=== PATIENT | female | born 1940 | race Caucasian/White ===

== ENCOUNTER 2024-04-21 09:37 | Outpatient (CLI) | payer MEDICARE, OTHER ==
[2024-04-21 10:00] LABS: BASOPHILS # (AUTO) 0.1 10^3/uL (0.0-0.1); BASOPHILS % (AUTO) 1.7 %; EOSINOPHILS # (AUTO) 0.3 10^3/uL (0.0-0.7); EOSINOPHILS % (AUTO) 4.5 %; HCT - HEMATOCRIT 36.9 % (37.0-47.0); HGB - HEMOGLOBIN 11.8 g/dL (12.0-16.0); LYMPHOCYTES # (AUTO) 1.5 10^3/uL (1.5-3.5); LYMPHOCYTES % (AUTO) 22.2 %; MEAN CORPUSCULAR HEMOGLOBIN 31.2 pg (27.0-31.0); MEAN CORPUSCULAR VOLUME 97.6 fL (81.0-99.0); MEAN PLATELET VOLUME 10.9 fL (7.9-10.8); MONOCYTES # (AUTO) 0.4 10^3/uL (0.0-1.0); MONOCYTES % (AUTO) 6.2 %; NEUTROPHILS # (AUTO) 4.3 10^3/uL (1.5-6.6); NEUTROPHILS % (AUTO) 64.8 %; PLT - PLATELET COUNT 207 10^3/uL (130-450); RED BLOOD COUNT 3.78 10^6/uL (4.20-5.40); RED CELL DISTRIBUTION WIDTH 13.8 % (12.0-15.0); WHITE BLOOD COUNT 6.7 x10^3/uL (4.8-10.8)
[2024-04-21 10:04] LABS: ALBUMIN/GLOBULIN RATIO 1.5 (1.0-2.2); ALKALINE PHOSPHATASE 95 IU/L (42-121); ALT ALANINE AMINOTRANSFERASE 8 IU/L (10-60); AST ASPARTATE AMINOTRANSFERASE 11 IU/L (10-42); BILIRUBIN,TOTAL 0.3 mg/dL (0.2-1.0); BUN - BLOOD UREA NITROGEN 49 mg/dL (6-20); CALCIUM 10.4 mg/dL (8.5-10.3); CARBON DIOXIDE - CO2 23 mmol/L (21-32); CHLORIDE 110 mmol/L (101-111); CHOL/HDL RATIO 4.1 (<4.4); CHOLESTEROL 272 mg/dL; CREATININE 2.1 mg/dL (0.6-1.3); GFR - MDRD 23 (>89); GLUCOSE 107 mg/dL (74-104); HDL CHOLESTEROL 66 mg/dL; LDL CHOLESTEROL,CALCULATED 190 mg/dL; LDL/HDL RATIO 2.9 (<4.4); POTASSIUM 4.5 mmol/L (3.5-4.5); SODIUM 139 mmol/L (135-145); TOTAL PROTEIN 6.7 g/dL (6.4-8.9); TRIGLYCERIDES 78 mg/dL (48-352); VLDL CHOLESTEROL 16 mg/dL
== END 2024-04-21 09:38 | disposition home or self-care (01) ==
LOC: LAB 09:37
PROVIDERS: ATTEND Internal Medicine
DX: I10 Essential (primary) hypertension (principal); Z13.228 Encounter for screening for other metabolic disorders; Z13.220 Encounter for screening for lipoid disorders; Z13.0 Encounter for screening for diseases of the blood and blood-forming organs and certain disorders involving the immune mechanism; Z79.899 Other long term (current) drug therapy; Z13.29 Encounter for screening for other suspected endocrine disorder
CPT/HCPCS: 36415; 80053; 80061; 83721; 84443; 85025

== ENCOUNTER 2025-03-11 18:51 | Observation (INO) ==
--- NOTE | 2025-03-11 19:21 | ED Physician Documentation ---
History of Present Illness Stated complaint Stated Complaint: DIZZY Chief complaint Chief Complaint: General Additonal information Additional information: 84-year-old female with past medical significant for hypertension, gastric reflux, on daily aspirin presents to the emergency department chief complaint generalized dizziness, weakness. Symptoms ongoing x 1 month. Reports has been having some increased symptoms of gastric reflux. Reports that this has been associated with infrequent episodes nausea vomiting. Denies use blood thinning medications. Denies Manjit Coma Scale Assess Eye opening: Spontaneous Verbal response: Oriented Motor response: Obeys Commands Total score: 15 Review of Systems Status of ROS: 10 or more systems reviewed and unremarkable except as noted in history and below Neurological Reports: Dizziness Meds/Allgy Home Medications Ambulatory Orders Medication Instructions Recorded Confirmed ascorbic acid (vitamin C) 1,000 mg 1 g PO QDAY 03/11/25 03/11/25 capsule aspirin 325 mg tablet 325 mg PO QDAY 03/11/25 03/11/25 atenolol 50 mg tablet mg PO QAM 03/11/25 03/11/25 azithromycin 250 mg tablet See Rx Instructions PO .COMPLEX #6 03/11/25 03/11/25 tabs cholecalciferol (vitamin D3) 125 125 mcg PO BID 03/11/25 03/11/25 mcg (5,000 unit) capsule omeprazole 20 mg capsule,delayed mg PO QDAY 03/11/25 03/11/25 release Allergies Allergies Allergy/AdvReac Type Severity Reaction Status Date / Time No Known Drug Allergies Allergy Verified 03/11/25 19:08 PFSH Active Problems All Active Problems (Updated 03/11/25 @ 19:51 by Schuyler Esposito MD) Anemia (Acute) Congestive heart failure (Acute) Chronic kidney disease (CKD), stage 4 (Acute) Left lower lobe consolidation (Acute) History of chronic kidney disease (Acute) Hypertension (Acute) Shortness of breath on exertion (Acute) Dizziness (Acute) Social History Social History (Updated 03/11/25 @ 13:02 by Anju Michele LPN) Smoking Status: Never smoker Do you feel safe in your home environment?: Yes Suffered physical, verbal, emotional, or financial abuse?: No Exam Exam Vital Signs: Vital Signs x48h Temp Pulse Resp BP Pulse Ox 03/11/25 19:03 36.7 C 96 18 112/73 95 Constitutional normal general appearance HENMT normocephalic Eyes PERRL Neck/C-Spine visual inspection normal Lymph no lymphadenopathy noted Chest inspection of chest normal Respiratory breath sounds equal bilaterally, normal respiratory effort and clear to auscultation bilaterally Cardiovascular normal heart rate noted, regular rhythm noted, no gallop, no rub and no murmur Gastrointestinal abdomen normal to inspection and normal rectal exam Light brown stool in rectal vault. Genitourinary no CVA tenderness Back/Pelvis spine normal to inspection Extremities normal to inspection Neurology supervisor microwave II-XII intact, no movement abnormality noted, no focal motor deficit noted and no sensory deficits noted Psychiatry Mental Status Exam documented in the separate MSE Skin skin color normal Results Vitals Vitals: Vital Signs - 24 hr 03/11/25 19:03 Temperature 36.7 C Temperature Source Temporal Artery Scan Pulse Rate 96 Respiratory Rate 18 Blood Pressure 112/73 O2 Saturation 95 O2 Source Room air Pain Intensity 0 Oxygen O2 Source Room air Labs Labs: Microbiology 03/11/25 19:07 Occult Blood - Final Stool Laboratory Tests 03/11/25 03/11/25 19:05 19:25 WBC 10.6 RBC 2.39 L Hgb 4.7 L* Hct 18.3 L* MCV 76.6 L MCH 19.7 L MCHC 25.7 L RDW 19.1 H Plt Count 371 MPV 9.5 Neut # (Auto) 6.8 H Lymph # (Auto) 2.4 [place] # (Auto) 0.8 Eos # (Auto) 0.3 Baso # (Auto) 0.1 Absolute Nucleated RBC 0.06 Nucleated RBC % 0.6 PT 12.1 INR 1.1 APTT 21.3 L Sodium 141 Potassium 3.5 Chloride 107 Carbon Dioxide 22 Anion Gap 12.0 BUN 20 Creatinine 1.8 H Estimated GFR (MDRD) 27 L Glucose 133 H Calcium 9.9 Total Bilirubin 0.5 AST 10 ALT 5 L Alkaline Phosphatase 80 Total Protein 6.6 Albumin 3.9 Globulin 2.7 Albumin/Globulin Ratio 1.4 Blood Type Recheck B POSITIVE Crossmatch IS Only See Detail PD Medical Decision Making ED course Complexity details: reviewed results, re-evaluated patient, considered differential and d/w patient Drug Therapy Requiring Monitoring for Toxicity: Transfusion/blood product. ED course: 84-year-old female presents with abnormal labs. Presents with 1 month history of dizziness, fatigue. Does report history of gastric reflux, daily aspirin use. No blood thinners. Denies alcohol abuse. Hemoglobin in outpatient clinic slightly greater than 4. Here 4.7. Light brown stool in rectal vault. Guaiac negative. Abdominal exam benign. No indications angiography of the abdomen at this time. Have ordered replacement blood product. Discussed with hospitalist service who graciously agreed to hospitalize for further evaluation and treatment. Discharge Plan Discharge Patient Disposition: 66 [facility] DC/Xfer Clinical Impression: Anemia Qualifiers: Anemia type: unspecified type Qualified Code(s): D64.9 - Anemia, unspecified Prescriptions: No Action atenolol 50 mg tablet PO QAM Patient Comments: TAKE 1 TABLET BY MOUTH DAILY omeprazole 20 mg capsule,delayed release(DR/EC) PO QDAY Patient Comments: TAKE 1 CAPSULE BY MOUTH DAILY cholecalciferol (vitamin D3) 125 mcg (5,000 unit) capsule 125 mcg PO BID aspirin 325 mg tablet 325 mg PO QDAY ascorbic acid (vitamin C) 1,000 mg capsule 1 g PO QDAY azithromycin 250 mg tablet See Rx Instructions PO .COMPLEX Qty: 6 0RF Rx Instructions: For 250 mg dose pack: take 500 mg today (day 1), then 250 mg for 4 days (days 2-5) PO Print Language: Persian Stand Alone Forms: PCP List
[2025-03-11] MEDS: PANTOPRAZOLE 40 MG VIAL IVP STA (19:28)
[2025-03-11 19:33] LABS: BASOPHILS # (AUTO) 0.1 10^3/uL (0.0-0.1); BASOPHILS % (AUTO) 0.9 %; EOSINOPHILS # (AUTO) 0.3 10^3/uL (0.0-0.7); EOSINOPHILS % (AUTO) 2.7 %; LYMPHOCYTES # (AUTO) 2.4 10^3/uL (1.5-3.5); LYMPHOCYTES % (AUTO) 22.8 %; MEAN CORPUSCULAR HEMOGLOBIN 19.7 pg (27.0-31.0); MEAN CORPUSCULAR HGB CONC 25.7 g/dL (32.0-36.0); MEAN CORPUSCULAR VOLUME 76.6 fL (81.0-99.0); MEAN PLATELET VOLUME 9.5 fL (7.9-10.8); MONOCYTES # (AUTO) 0.8 10^3/uL (0.0-1.0); MONOCYTES % (AUTO) 7.9 %; NEUTROPHILS # (AUTO) 6.8 10^3/uL (1.5-6.6); NEUTROPHILS % (AUTO) 64.3 %; NRBC ABSOLUTE COUNT (AUTO) 0.06 x10^3/uL; NUCLEATED RED BLOOD CELLS AUTO 0.6 /100WBC; PLT - PLATELET COUNT 371 10^3/uL (130-450); RED BLOOD COUNT 2.39 10^6/uL (4.20-5.40); RED CELL DISTRIBUTION WIDTH 19.1 % (12.0-15.0); WHITE BLOOD COUNT 10.6 x10^3/uL (4.8-10.8)
[2025-03-11 19:42] LABS: PARTIAL THROMBOPLASTIN TIME 21.3 secs (24.9-33.3)
[2025-03-11 19:43] LABS: HCT - HEMATOCRIT 18.3 % (37.0-47.0); HGB - HEMOGLOBIN 4.7 g/dL (12.0-16.0)
[2025-03-11 19:46] LABS: INR 1.1 (0.8-1.2); PT - PROTHROMBIN TIME 12.1 secs (9.9-12.6)
[2025-03-11 19:47] LABS: ALBUMIN 3.9 g/dL (3.2-5.5); ALBUMIN/GLOBULIN RATIO 1.4 (1.0-2.2); BILIRUBIN,TOTAL 0.5 mg/dL (0.2-1.0); CALCIUM 9.9 mg/dL (8.5-10.3); CREATININE 1.8 mg/dL (0.6-1.3); POTASSIUM 3.5 mmol/L (3.5-4.5); TOTAL PROTEIN 6.6 g/dL (6.4-8.9)
--- NOTE | 2025-03-11 20:36 | HISTORY & PHYSICAL EXAMINATION ---
Chief Complaint Chief Complaint Chief Complaint: weak and tired History of Present Illness Admitted From Admitted From:: home History Obtained From Records Reviewed: [facility] visit today, last PCP note about a year ago History obtained from: patient and daughter History of Present Illness HPI Comment/Other: Has been feeling poorly for a month, worse for the last several weeks. She notes that she is very short of breath with any exertion at all. She has been feeling weak and tired and has been getting dizzy. She does not note any shortness of breath when she lays down at night. In fact she says she feels better when she lays down flat. She was seen in the walk-in clinic earlier today and had a chest x-ray and lab work. She was called by the walk-in clinic after labs were resulted and call told to come to the emergency department for blood transfusion. She was started on Zithromax by the walk-in clinic for presumed atypical pneumonia due to infiltrate seen in the left lower lobe on the chest x-ray. She has a history of hypertension and chronic kidney disease. She denies any history of anemia. She has not had any change in her bowel habits. She has not noted any black dark tarry sticky stool. She has not had any bright red blood per rectum. Rectal exam by the ED provider was negative for occult blood. She has a long history of reflux has been on a proton pump inhibitor for quite some time she also takes aspirin for cardiac prophylaxis. Diagnosis of CHF noted on the chart. reviewed records in [place] to include notes from [facility], etc. No note of this in that chart. PAtient denies this diagnosis. she never recalls having had an echocardiogram. There is a hx of colonoscopy noted in [facility] chart, but no note of the date. Patient does not recall ever having had one. At this point, she is past the age for recommended screening. And, she is not having any history consistent with GI bleed. Additionally over the last several months she notices persistent dry skin the just does not seem to go away. Her hemoglobin is 4.7 when labs are drawn this afternoon. I discussed her with Dr. Esposito in the emergency department decision was made to admit her to observation status for transfusion of multiple units of blood. Additionally we will undertake some workup for her anemia. Code status, DNR daughter Jose D is her surrogate medical decision maker. She states that she has a POLST at home, that was filled out when Dr Woodward was her PCP at [facility]. The POLST states DNR/DNI. We do not have a copy on file here. Meds/Allgy Home Medications Ambulatory Orders Medication Instructions Recorded Confirmed ascorbic acid (vitamin C) 1,000 mg 1 g PO QDAY 03/11/25 03/11/25 capsule aspirin 325 mg tablet 325 mg PO QDAY 03/11/25 03/11/25 atenolol 50 mg tablet mg PO QAM 03/11/25 03/11/25 azithromycin 250 mg tablet See Rx Instructions PO .COMPLEX #6 03/11/25 03/11/25 tabs cholecalciferol (vitamin D3) 125 125 mcg PO BID 03/11/25 03/11/25 mcg (5,000 unit) capsule omeprazole 20 mg capsule,delayed mg PO QDAY 03/11/25 03/11/25 release Allergies Allergies Allergy/AdvReac Type Severity Reaction Status Date / Time No Known Drug Allergies Allergy Verified 03/11/25 19:08 PFS Active Problems All Active Problems (Updated 03/11/25 @ 21:05 by KALLIE Rivera) Symptomatic anemia (Acute) Anemia (Acute) Congestive heart failure (Acute) Chronic kidney disease (CKD), stage 4 (Acute) Left lower lobe consolidation (Acute) History of chronic kidney disease (Acute) Hypertension (Acute) Shortness of breath on exertion (Acute) Dizziness (Acute) Social History Social History (Updated 03/11/25 @ 13:02 by Anju Michele LPN) Smoking Status: Never smoker Do you feel safe in your home environment?: Yes Suffered physical, verbal, emotional, or financial abuse?: No Review of Systems Status of ROS: 10 or more systems reviewed and unremarkable except as noted in history and below Constitutional Reports: Fatigue Eyes Denies: Vision loss Ears, nose, mouth, and throat Denies: Change in hearing or Dry mouth Cardiovascular Reports: swelling of feet/ankles, lightheadedness and shortness of breath with exertion; Denies: Irregular heart rate, chest pain, palpitations, Syncope or shortness of breath when lying down Respiratory Reports: Shortness of breath; Denies: Sputum production or Coughing up blood Gastrointestinal Denies: Abdominal pain, Abdominal distention, Nausea, Vomiting, Poor appetite, Change in bowel habits, Painful bowel movements, Rectal bleeding, Change in stool character, Melena or Blood in stool Genitourinary Denies: Vaginal bleeding Integumentary/Breast Reports: Dryness (several months) Neurological Reports: General weakness; Denies: Headache Endocrine Reports: Fatigue Hematologic/Lymphatic Reports: Anemia; Denies: Easy bruising, Easy bleeding or Blood clots Prior Level of Functionality: meets all of her own needs. Drives, does her own shopping, does not use assistive devices. daughter lives 2 miles away, but patient does not need her for ADL/iADLs Exam Exam Vital Signs: Vital Signs x48h Temp Pulse Resp BP Pulse Ox 03/11/25 19:38 85 16 164/73 H 96 03/11/25 19:03 36.7 C 96 18 112/73 95 Constitutional normal general appearance and no apparent distress skin appears pale. well groomed. HENMT normocephalic, hearing grossly normal bilaterally, external ears normal and oral mucous membranes normal Eyes conjunctivae normal (pale) and visual acuity normal Neck/C-Spine visual inspection normal Lymph no lymphadenopathy noted Chest inspection of chest normal Respiratory breath sounds equal bilaterally and no rales (LLL) occasional crackle on the left posterior lung field Cardiovascular normal heart rate noted, regular rhythm noted, no murmur and peripheral pulses 2+ throughout Gastrointestinal abdomen normal to inspection and abdomen soft to palpation Genitourinary no CVA tenderness Back/Pelvis spine normal to inspection Extremities normal to inspection 2+ pedal edema Neurology speech normal and GCS 15 Psychiatry mental status grossly normal, oriented x3, thought process normal, cooperative and affect normal Conclusion/Plan Problem List (1) Symptomatic anemia: Plan: 84-year-old female who has been feeling weak tired and dizzy over the last month worse for the last several weeks. She denies any change in her bowel habits. She has not had any melena, she denies any BRBPR. As far as she recalls, never had colonoscopy. no hematemesis. no vaginal bleeding. She has a history of GERD and has been off her PPI for about a month/ She has not seen her PCP for over a year, PCP just retired. Trying to get new PCP at [facility]. She has a long hx of HTN, not well controlled and CKD, with some type of pediatric kidney disease. Will check renal ultrasound as well to assess for thinning of the renal cortex. She will be transfused 3 u PRBCs overnight which should improve her HGB to over 7 but below 8. (2) Left lower lobe consolidation: Plan: CXR not read by radiologist. She had a URI with terrible cough about a month ago. I see LLL consolidation on CXR. I question if there is a hiatal hernia present. she has taken 500mg po azithromycin today. I will start her on Rocephin 1gm IV daily this evening. I will give her 500mg azithromycin IV in the AM> I will check her CXR in the AM. She has a WBC that is the upper limits of normal, 10.6 this evening, could be consistent w CAP. (3) History of chronic kidney disease: Plan: could be a contributing factor to her anemia. Check renal US in the AM. (4) Hypertension: Plan: I will resume home antihypertensives once med rec is complete. She has a long hx of HTN and it seems that control of her HTN has not been ideal, in review of previous records. Lab Results Lab results reviewed: Yes 03/11/25 19:05 03/11/25 19:05 Diagnostic Imaging Results Diagnostic Imaging Results: positive Read independently Diagnostic Imaging Results Comments: LLL consolidation ?Hiatal hernia EKG Results EKG Interpreted Independently: Yes EKG Comparison: No prior EKG EKG Findings: no ischemia Core Measures Anticipated LOS I expect patient to be DC'd or transferred within 96 hours.: Yes Issues Hospital Issues and Management Plan: Admit for symptomatic anemia. Will start workup for the symptomatic anemia with renal ultrasound also will obtain iron panel. I am admitting this patient to observation status as I expect her stay to be less than 2 midnights. I have spent 85minutes in the care of this patient today. This includes time [id number], review and ordering of diagnostic imaging and laboratory studies and consultation with other providers. DVT/VTE - Prophylaxis VTE/DVT Device ordered at admit?: Yes VTE/DVT Prophylaxis med ordered at admit?: No Not Ordered - Medical Reason: Contraindicated (anemia, severe)
[2025-03-11] MEDS ORDERED: ONDANSETRON 4 MG/2 ML VIAL IVP PRN (22:12)
[2025-03-11] MEDS ORDERED: SODIUM CHLORIDE FLUSH 0.9% 10 ML SYRINGE IVP PRN (22:12)
[2025-03-11] MEDS ORDERED: ACETAMINOPHEN 325 MG TABLET PO PRN (22:12)
[2025-03-11] MEDS: cefTRIAXone 1 GM VIAL IVP SCH (22:58)
[2025-03-11] MEDS: diphenhydrAMINE INJ 50 MG/ML VIAL IVP ONE (22:58)
[2025-03-11] MEDS: SODIUM CHLORIDE FLUSH 0.9% 10 ML SYRINGE IVP SCH (23:45)
[2025-03-12] MEDS: AZITHROMYCIN INJ 500 MG in SODIUM CHLORIDE 0.9% 250 ML IV SCH (08:31)
[2025-03-12 08:55] VITALS: TEMP 97.9
[2025-03-12 09:59] LABS: BASOPHILS # (AUTO) 0.1 10^3/uL (0.0-0.1); BASOPHILS % (AUTO) 1.5 %; EOSINOPHILS # (AUTO) 0.4 10^3/uL (0.0-0.7); HCT - HEMATOCRIT 32.3 % (37.0-47.0); HGB - HEMOGLOBIN 9.8 g/dL (12.0-16.0); LYMPHOCYTES # (AUTO) 1.4 10^3/uL (1.5-3.5); LYMPHOCYTES % (AUTO) 15.1 %; MEAN CORPUSCULAR HEMOGLOBIN 24.7 pg (27.0-31.0); MEAN CORPUSCULAR HGB CONC 30.3 g/dL (32.0-36.0); MEAN CORPUSCULAR VOLUME 81.6 fL (81.0-99.0); MEAN PLATELET VOLUME 9.1 fL (7.9-10.8); MONOCYTES # (AUTO) 0.6 10^3/uL (0.0-1.0); MONOCYTES % (AUTO) 6.8 %; NEUTROPHILS # (AUTO) 6.3 10^3/uL (1.5-6.6); NEUTROPHILS % (AUTO) 70.5 %; NRBC ABSOLUTE COUNT (AUTO) 0.05 x10^3/uL; NUCLEATED RED BLOOD CELLS AUTO 0.6 /100WBC; PLT - PLATELET COUNT 239 10^3/uL (130-450); RED BLOOD COUNT 3.96 10^6/uL (4.20-5.40); RED CELL DISTRIBUTION WIDTH 17.8 % (12.0-15.0); WHITE BLOOD COUNT 8.9 x10^3/uL (4.8-10.8)
[2025-03-12 10:19] LABS: CALCIUM 9.3 mg/dL (8.5-10.3); CREATININE 1.5 mg/dL (0.6-1.3); POTASSIUM 3.7 mmol/L (3.5-4.5)
--- NOTE | 2025-03-12 12:24 | PHARMACY PROGRESS NOTE ---
Best Possible Medication History Admit Date and Time: 03/11/252123 Home Medications Medication Instructions Recorded Confirmed Type ascorbic acid (vitamin C) 1,000 mg 3 g PO DAILY 03/11/25 03/12/25 History capsule aspirin 325 mg tablet 325 mg PO DAILY 03/11/25 03/12/25 History atenolol 50 mg tablet 50 mg PO QPM 03/11/25 03/12/25 History azithromycin 250 mg tablet See Rx Instructions PO .COMPLEX #6 03/11/25 03/12/25 Rx tabs cholecalciferol (vitamin D3) 125 125 mcg PO DAILY 03/11/25 03/12/25 History mcg (5,000 unit) capsule omega 5-otn-[id number]-fish oil 1,000 mg 1 cap PO DAILY 03/12/25 03/12/25 History (120 mg-180 mg) capsule (Fish Oil) Processed by: Pharmacy Medications reviewed in ED?: No Medication History completed: Yes Patient Interview: Completed Secondary Source(s): Insurance records [facility] Statement: Per [facility] interview with patient and review of [employer] insurance records. As the person ultimately responsible for medication therapy, providers are able to order a medication from an existing home medication list in [facility] via the "Reconcile Routine" prior to Confirmation of that medication by marketing support assistant. Such practice is discouraged except when the physician, in their clinical judgment, deems that a medical need exists for a medication without regard to previous use.
--- NOTE | 2025-03-12 12:29 | Discharge Summary ---
"Discharge Summary Admit Date: 03/11/25 Discharge Date: 03/12/25 Discharging Provider: Josselin Bueno PA-C Primary Care Provider: Selam Woodward MD- patient will be changing to new provider. Code Status: Do Not Attempt Resuscitation DIAGNOSES Discharge Diagnoses with Status of Each Condition: Symptomatic anemia: Hemoglobin 4.7, transfused 3 units of packed red blood cells, discharge hemoglobin of 9.8. Left lower lobe consolidation: Treated as community-acquired pneumonia. Received Rocephin and azithromycin IV while inpatient. Discharged home on azithromycin and cefpodoxime. History of CKD: Creatinine 1.8 on discharge. Renal ultrasound results are pending. Hypertension: Chronic and stable. HPI History of Present Illness: Has been feeling poorly for a month, worse for the last several weeks. She notes that she is very short of breath with any exertion at all. She has been feeling weak and tired and has been getting dizzy. She does not note any shortness of breath when she lays down at night. In fact she says she feels better when she lays down flat. She was seen in the walk-in clinic earlier today and had a chest x-ray and lab work. She was called by the walk-in clinic after labs were resulted and call told to come to the emergency department for blood transfusion. She was started on Zithromax by the walk-in clinic for presumed atypical pneumonia due to infiltrate seen in the left lower lobe on the chest x-ray. She has a history of hypertension and chronic kidney disease. She denies any history of anemia. She has not had any change in her bowel habits. She has not noted any black dark tarry sticky stool. She has not had any bright red blood per rectum. Rectal exam by the ED provider was negative for occult blood. She has a long history of reflux has been on a proton pump inhibitor for quite some time she also takes aspirin for cardiac prophylaxis. Diagnosis of CHF noted on the chart. reviewed records in [place] to include notes from [facility], etc. No note of this in that chart. PAtient denies this diagnosis. she never recalls having had an echocardiogram. There is a hx of colonoscopy noted in [facility] chart, but no note of the date. Patient does not recall ever having had one. At this point, she is past the age for recommended screening. And, she is not having any history consistent with GI bleed. Additionally over the last several months she notices persistent dry skin the just does not seem to go away. Her hemoglobin is 4.7 when labs are drawn this afternoon. I discussed her with Dr. Esposito in the emergency department decision was made to admit her to observation status for transfusion of multiple units of blood. Additionally we will undertake some workup for her anemia. Code status, DNR daughter Jose D is her surrogate medical decision maker. She states that she has a POLST at home, that was filled out when Dr Woodward was her PCP at [facility]. The POLST states DNR/DNI. We do not have a copy on file here. CONSULTS | PROCEDURES Procedures: Chest x-ray: Wet read suspicious for left lower lobe consolidation. Read by radiologist as no acute cardiopulmonary process. HOSPITAL COURSE Hospital Course: She was admitted with symptomatic anemia. She has no history of this. She has not been having having any signs or symptoms of GI blood loss. She has a history of chronic kidney disease and had some sort of kidney disease in childhood- unclear exactly what. No indication of hemolytic anemia, no significantly decreased iron stores, normal B12 and folate levels. Patient felt better after transfusion. The majority of her fatigue, dizziness and dyspnea was gone. She felt much more steady on her feet and was comfortable discharging to home. I impressed upon her the importance of primary care and hematology followups. ALLERGIES Allergies Allergy/AdvReac Type Severity Reaction Status Date / Time Penicillins Allergy Intermediate Hives Verified 03/12/25 10:04 Sulfa (Sulfonamide Allergy Intermediate Hives Verified 03/12/25 10:04 Antibiotics) MEDICATIONS Ambulatory Orders Medication Instructions Recorded Confirmed ascorbic acid (vitamin C) 1,000 mg 3 g PO DAILY 03/11/25 03/12/25 capsule aspirin 325 mg tablet 325 mg PO DAILY 03/11/25 03/12/25 atenolol 50 mg tablet 50 mg PO QPM 03/11/25 03/12/25 azithromycin 250 mg tablet See Rx Instructions PO .COMPLEX #6 03/11/25 03/12/25 tabs cholecalciferol (vitamin D3) 125 125 mcg PO DAILY 03/11/25 03/12/25 mcg (5,000 unit) capsule cefpodoxime 200 mg tablet 200 mg PO BID #6 tabs 03/12/25 omega 7-xwz-yoo-fish oil 1,000 mg 1 cap PO DAILY 03/12/25 03/12/25 (120 mg-180 mg) capsule (Fish Oil) PHYSICAL EXAM AT DISCHARGE Vital Signs: Vital Signs x48h Temp Pulse Resp BP Pulse Ox 03/12/25 13:00 36.6 C 71 18 174/93 H 93 General Appearance: positive No acute distress and Alert Eyes Bilateral: positive Normal inspection and Conjunctivae nml ENT: positive ENT inspection nml Neck: positive Trachea midline Respiratory: positive No respiratory distress and Breath sounds nml Cardiovascular: positive Regular rate & rhythm Peripheral Pulses: positive 2+ Abdomen: positive No distention Skin: positive Color nml and Dry Extremities: positive Other (decreased pedal edema from the time of admit. ) Neurologic/Psychiatric: positive Oriented x3 LABS 03/12/25 09:52 03/12/25 09:52 FOLLOW UP Follow Up: PCP at [facility]- scheduling aware of this need. Her PCP (Dr Woodward) has retired. needs PCP referral to hematology. TIME SPENT Time Spent in Discharge (Minutes): 45 Discharge Plan Discharge Patient Disposition: Home, Self Care Prescriptions: New cefpodoxime 200 mg tablet 200 mg PO BID Qty: 6 0RF Rx Instructions: must administer with a meal/food Continued omega 2-fvm-mvl-fish oil [Fish Oil] 1,000 (120-180) mg capsule 1 cap PO DAILY atenolol 50 mg tablet 50 mg PO QPM Patient Comments: TAKE 1 TABLET BY MOUTH DAILY cholecalciferol (vitamin D3) 125 mcg (5,000 unit) capsule 125 mcg PO DAILY aspirin 325 mg tablet 325 mg PO DAILY ascorbic acid (vitamin C) 1,000 mg capsule 3 g PO DAILY azithromycin 250 mg tablet See Rx Instructions PO .COMPLEX Qty: 6 0RF Rx Instructions: For 250 mg dose pack: take 500 mg today (day 1), then 250 mg for 4 days (days 2-5) PO Diet: Regular Interventions: Belongings Inventory Last Done: 03/11/25 23:30 Discharge Last Done: 03/12/25 16:41 Discharge Checklist - Nursing Last Done: 03/12/25 16:41 Health Concerns: You came into the hospital feeling weak and tired for about a month. You are having difficulties with shortness of breath. The chest x-ray that was done after leaving the walk-in clinic yesterday is somewhat suggestive of a mild pneumonia. I think it is safest to treat you for this pneumonia. You got 1 dose of antibiotics (azithromycin) yesterday before you came into the hospital. I gave you 1 dose IV this morning of azithromycin. Tomorrow morning I want you to take 2 additional pills from the pack of antibiotics that you were prescribed. That we will finish 3 days of 500 mg a day which is adequate treatment for this. In addition on Saturday and Saturday I would like you to take Cefpodoxime (I would have used Augmentin, but you have a penicillin allergy) twice a day. I have sent this into your pharmacy. We have given you an antibiotic here in the hospital that covers you for 24 hours. That is why you do not need to start the Augmentin until Saturday. You need primary care follow-up. Since Dr. Woodward has retired I know you would like to go to the clinic at [facility]. I am working to try to get you follow- up in the near future. You SHOULD get a call on Saturday to schedule. I am also sending a copy of my paperwork to the nurse that follows hospital discharges in the clinic.... in hopes that you do not get lost in the shuffle of things. You need someone to keep an eye on your blood counts and you most likely need to see a tipple worker/oncologist about your anemia. I think it is most likely that the source of your anemia is you are not making the blood cells that you need. There is no indication that your body is destroying red blood cells faster than you need them destroyed and there is no indication that you are losing red blood cells. Your iron levels are actually not that bad. They are at the lower end of normal. No iron supplementation at this time. Results of your renal ultrasound are pending. This is why it is important for you to have primary care follow-up. I will also be keeping a look out for these results. Be careful!!! No driving until you are much more stable. Only shower at home when you have someone there to help you. Always have your phone in your pocket, and think about getting an Apple watch with fall alert and a heart rate monitor. Care Plan Goals: Return to the ED if you start to feel weak tired and dizzy and or getting short of breath with simple activities like walking to the bathroom. There is no shame in coming in and asking for a blood draw!! Walk in clinic is also a really good option for getting checked, and as you know, they will send you to the ED if needed! Print Language: Vietnamese Patient Instructions: Erythropoietin Blood, Anemia and Kidney Disease Stand Alone Forms: PCP List"
[2025-03-12 13:35] VITALS: BP 174/93; O2SAT 93
--- NOTE | 2025-03-12 18:00 | Ultrasound Report ---
PROCEDURE: US Renal (Retroperitoneal) INDICATIONS: anemia, CKD TECHNIQUE: Real-time scanning was performed of the retroperitoneal organs, with image documentation. COMPARISON: None. FINDINGS: Kidneys: Right kidney measures 8.6 cm long; left kidney measures 7.8 cm long. The right renal cortex measures 0.6 cm and the left renal cortex measures 0.7 cm. There is a nonshadowing hyperechoic nodule along the mid aspect of the left kidney measuring up to 7 mm. Moderate left-sided hydroureter is seen, with a dilated renal pelvis. This resolves postvoid. No shadowing stones are seen. There is an 11 mm left mid kidney cyst. Bladder: Pre-void bladder volume is 301 mL. Post-void residual is 228 mL. Pre-void images demonstr ate no intraluminal masses or stones. On pre-void images, both ureteral jets are noted with color Do ppler interrogation. (Of note, ureteral jets may not be detectable in up to 25% of cases due to insu fficient differences in specific gravity between ureteral and bladder urine). Miscellaneous: No free abdominal fluid. IMPRESSION: Atrophic appearing kidneys. Left kidney hydroureter is seen, with a dilated pelvis, which resolves postvoid. There is a large postvoid residual, 228 cc. Additional findings: Right kidney benign fat-containing lesion, 7 mm Simple left renal cyst, 11 mm Reviewed by: Luis Alfredo Gary MD on 03/12/2025 4:59 PM [facility] Approved by: Luis Alfredo Gary MD on 03/12/2025 4:59 PM AKDT Station ID: [id number]
== END 2025-03-12 13:35 | disposition home or self-care (01) ==
LOC: ED 18:51 → MS2 18:51
PROVIDERS: ADMIT Physician Assistant Medical; ATTEND Physician Assistant Medical
DX: R06.02 Shortness of breath; I10 Essential (primary) hypertension; Z66 Do not resuscitate; K21.9 Gastro-esophageal reflux disease without esophagitis; Z79.82 Long term (current) use of aspirin; I12.9 Hypertensive chronic kidney disease with stage 1 through stage 4 chronic kidney disease, or unspecified chronic kidney disease; N18.9 Chronic kidney disease, unspecified; R42 Dizziness and giddiness; L85.3 Xerosis cutis; D64.9 Anemia, unspecified; J18.9 Pneumonia, unspecified organism; Z87.448 Personal history of other diseases of urinary system